=== PATIENT | male | born 1980 | race Two or more races ===

== ENCOUNTER 2019-11-17 00:19 | Emergency (ER) | payer MEDICAID ==
[~2019-11-17] VITALS: Ht 172.7 cm; Wt 73.0 kg
[2019-11-17 03:17] VITALS: BP 101/57
== END 2019-11-17 03:51 | disposition home or self-care (01) ==
LOC: ER 00:21
DX: S01.411A Laceration without foreign body of right cheek and temporomandibular area, initial encounter (principal); X58.XXXA Exposure to other specified factors, initial encounter; Y93.67 Activity, basketball; Y92.89 Other specified places as the place of occurrence of the external cause; Y99.8 Other external cause status
CPT/HCPCS: 12013

== ENCOUNTER 2020-02-10 17:15 | Emergency (ER) | payer MEDICAID ==
[~2020-02-10] VITALS: Ht 172.7 cm; Wt 72.6 kg
[2020-02-10 17:32] VITALS: BP 90/56
== END 2020-02-10 22:16 | disposition home or self-care (01) ==
LOC: ER 17:15
DX: U07.1 COVID-19 (principal); J02.9 Acute pharyngitis, unspecified
CPT/HCPCS: 36415; 87426; 99283; C9803; U0003

== ENCOUNTER 2020-02-19 13:02 | Emergency (ER) | payer MEDICAID ==
[~2020-02-19] VITALS: Ht 172.7 cm; Wt 70.3 kg
[2020-02-19 13:46] VITALS: BP 113/70
[2020-02-19] MEDS ORDERED: cefTRIAXone SOD 1,000 MG VL IM ONE (15:30)
== END 2020-02-19 16:10 | disposition home or self-care (01) ==
LOC: ER 13:02
DX: K04.7 Periapical abscess without sinus (principal)
CPT/HCPCS: 96372; 99283; J0696

== ENCOUNTER 2021-03-16 22:17 | Emergency (ER) | payer MEDICAID ==
[~2021-03-16] VITALS: Ht 172.7 cm; Wt 72.6 kg
[2021-03-17 06:39] VITALS: BP 108/64
== END 2021-03-17 07:20 | disposition home or self-care (01) ==
LOC: ER 22:21
DX: S46.911A Strain of unspecified muscle, fascia and tendon at shoulder and upper arm level, right arm, initial encounter (principal); X50.1XXA Overexertion from prolonged static or awkward postures, initial encounter; Y93.89 Activity, other specified; Y92.89 Other specified places as the place of occurrence of the external cause; Y99.8 Other external cause status
CPT/HCPCS: 73030